=== PATIENT | male | born 1955 | race Caucasian/White ===

== ENCOUNTER → 2017-01-31 | Outpatient (CLI) | payer OTHER | END | disposition home or self-care (01) | DX: R05 Cough (principal); G20 Parkinson's disease; R13.10 Dysphagia, unspecified | CPT/HCPCS: 92611 GN ==

== ENCOUNTER 2017-04-04 15:46 | Emergency (ER) | payer OTHER ==
[~2017-04-04] VITALS: Ht 172.7 cm; Wt 106.2 kg
[2017-04-04 16:30] VITALS: BP 141/97
[2017-04-04] MEDS ORDERED: ESCITALOPRAM OX10 MG PO (16:43)
[2017-04-04] MEDS ORDERED: LOSARTAN POTASS50 MG PO (16:43)
[2017-04-04] MEDS ORDERED: ESCITALOPRAM OXA5 MG PO (16:43)
[2017-04-04] MEDS ORDERED: BETA BLOCKER PO (16:44)
== END 2017-04-04 17:55 | disposition home or self-care (01) ==
LOC: EME 15:46
DX: S20.212A Contusion of left front wall of thorax, initial encounter (principal); V89.2XXA Person injured in unspecified motor-vehicle accident, traffic, initial encounter; Y92.410 Unspecified street and highway as the place of occurrence of the external cause; I10 Essential (primary) hypertension; G20 Parkinson's disease; Z87.891 Personal history of nicotine dependence; R93.5 Abnormal findings on diagnostic imaging of other abdominal regions, including retroperitoneum
CPT/HCPCS: 70450; 71250; 72125; 74176; 99281; 99283

== ENCOUNTER → 2017-05-31 | Outpatient (CLI) | payer OTHER ==
[~2017-05-31] VITALS: Ht 172.7 cm; Wt 99.8 kg
[~2017-05-31] MED LIST: BETA BLOCKER PO; COZAAR50 MG PO; ESCITALOPRAM OX10 MG PO; ESCITALOPRAM OXA5 MG PO; KLONOPIN0.5 M1 PO; LEXAPRO10 MG PO; LOSARTAN POTASS50 MG PO; PROTONIX40 MG PO
== END | disposition home or self-care (01) ==
LOC: AMB 11:48
DX: Z12.11 Encounter for screening for malignant neoplasm of colon (principal); K21.9 Gastro-esophageal reflux disease without esophagitis; Z86.010 Personal history of colon polyps; K57.30 Diverticulosis of large intestine without perforation or abscess without bleeding; R05 Cough; I10 Essential (primary) hypertension; G20 Parkinson's disease; F41.8 Other specified anxiety disorders; E66.9 Obesity, unspecified; Z88.1 Allergy status to other antibiotic agents
CPT/HCPCS: 93005; J2250; J3010